=== PATIENT | female | born 1995 | race Caucasian/White ===

== ENCOUNTER 2019-03-12 15:43 | Emergency (ER) | payer OTHER ==
[~2019-03-12] VITALS: Ht 162.6 cm; Wt 88.0 kg
--- NOTE | 2019-03-12 16:13 | NUR ---
MITESH TOLBERT BS FOR EXAM. PT ADMITS TO "A LOT OF ALCOHOL LAST NIGHT". C/O VOMITING DARK BLOOD SINCE LUNCHTIME, RLQ & EPIGASTRIC PAIN. REPORTS "BURNING PAIN" & NAUSEA LMP: "ABOUT A MONTH AGO". 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 HX: GERD
[2019-03-12] MEDS ORDERED: RANI150T4 PO (16:20)
[2019-03-12] MEDS ORDERED: BIRTH CONTROL IMPLANT (16:20)
--- NOTE | 2019-03-12 16:20 | NUR ---
PT AMBUALTORY TO & FROM [facility] W/OUT INCIDENT; GAIT STEADY. VOIDED URINE SPECIMEN PROVIDED: MARTÍN
[2019-03-12] MEDS ORDERED: ONDANSETRON 2MG/ML, 2ML ONE (16:22)
[2019-03-12] MEDS ORDERED: MAALOX/HYOSCYAMINE/LIDOCAINE 45 ML BTL ONE (16:23)
[2019-03-12] MEDS ORDERED: FAMOTIDINE 20 MG/2 ML ONE (16:23)
[2019-03-12] MEDS ORDERED: SODIUM CHLORIDE FLUSH 10ML SYR IVF ONE (16:30)
[2019-03-12] MEDS ORDERED: ONDANSETRON 2MG/ML, 2ML IVPush ONE (16:30)
[2019-03-12] MEDS ORDERED: FAMOTIDINE 20 MG/2 ML IV ONE (16:30)
[2019-03-12] MEDS ORDERED: MAALOX/HYOSCYAMINE/LIDOCAINE 45 ML BTL PO ONE (16:30)
[2019-03-12] MEDS ORDERED: SODIUM CHLORIDE 0.9% 1,000ML IVBOLUS ONE (16:30)
[2019-03-12 16:48] LABS: MEAN CORPUSCULAR HEMOGLOBIN 32.5 pg (27.0-34.8); MEAN CORPUSCULAR HGB CONC 33.7 g/dL (32.4-35.8); MEAN CORPUSCULAR VOLUME 96.7 fL (80-100); MEAN PLATELET VOLUME 8.9 fL (7.4-10.4); PLATELET COUNT 429 x10^3/uL (130-400); RED CELL DISTRIBUTION WIDTH 13.4 % (9.6-15.2)
[2019-03-12 16:50] LABS: MD YES
--- NOTE | 2019-03-12 16:50 | NUR ---
PIV INITIATED, LABS DRAWN FROM SITE. NS, ZOFRAN, PEPCID & GI COCKTAIL PER EMAR. PT STATES SHE DRANK 750ML WHISKEY YESTERDAY. DESCRIBES HERSELF A "FUNCTIONING ALCOHOLIC".
[2019-03-12 17:00] LABS: ALANINE AMINOTRANSFERASE 37 U/L (12-78); ALBUMIN 4.1 g/dL (3.4-5.0); ANION GAP 9 mmol/L (5-15); CALCIUM 8.5 mg/dL (8.5-10.1); CHLORIDE 106 mmol/L (98-107); CREATININE 0.72 mg/dL (0.55-1.02)
[2019-03-12 17:04] LABS: ALKALINE PHOSPHATASE 71 U/L (45-117); BILIRUBIN,TOTAL 0.5 mg/dL (0.2-1.0); TOTAL PROTEIN 8.7 g/dL (6.4-8.2)
[2019-03-12 17:14] LABS: LYMPH#(MANUAL) 1.61 x10^3/uL (1-3.4); LYMPHS% (MANUAL) 9 % (22-44); MONOS% (MANUAL) 5 % (2-9); SEG#(MANUAL) 15.39 x10^3/uL (1.8-6.8); SEGS% (MANUAL) 86 % (42-75)
[2019-03-12 17:16] LABS: <PLATELET ESTIMATE> INCREASED; <PLT MORPHOLOGY> NORMAL PLT MORPH; <RBC MORPHOLOGY> NORMAL
[2019-03-12 17:23] VITALS: BP 101/68
--- NOTE | 2019-03-12 17:24 | NUR ---
SITTING QUIETLY ON GURNEY. REPORTS IMPROVEMENT IN SYMPTOMS. SIDE RAILS UP X2, CALL LIGHT W/IN REACH. BROTHER IN ROOM.
--- NOTE | 2019-03-12 17:33 | NUR ---
RECTAL EXAM PER MITESH TOLBERT W/ THIS RN ASSIST. PT TOLERATED PROCEDURE.
--- NOTE | 2019-03-12 17:38 | NUR ---
DR HERNANDEZ BS
--- NOTE | 2019-03-12 17:49 | NUR ---
PT REPORT TO BREAK RN: LUCÍA Cartagena RN. PT CARE TRANSFERRED.
--- NOTE | 2019-03-12 18:11 | NUR ---
Patient/Caregiver given discharge instructions and they have confirmed that they understand the instructions. Patient ambulatory with steady gait.
== END 2019-03-12 18:34 | disposition home or self-care (01) ==
LOC: ED 17:45
DX: K29.20 Alcoholic gastritis without bleeding (principal); D72.829 Elevated white blood cell count, unspecified
CPT/HCPCS: 36415; 80053; 83690; 84703; 85025; 96361; 96374; 96375; 99283; J2405; J3490; J7030